=== PATIENT | male | born 1975 | race Caucasian/White ===

== ENCOUNTER 2025-02-14 18:00 | Emergency (ER) | payer SELFPAY ==
[2025-02-14] VITALS (25 sets, daily range): BP systolic 95–165; BP diastolic 25–115; PULSE 57–110; RESP 8–24; TEMP 36.3–36.4; O2SAT 88–97
--- NOTE | 2025-02-14 18:00 | DI.RAD_ITS ---
Exam(s) XR PORTABLE CHEST AP EXAM: XR PORTABLE CHEST AP CLINICAL HISTORY: Chest pain TECHNIQUE: 2D digital imaging was performed of the chest. One image was obtained. An AP view was obtained. COMPARISON: No exams were available for comparison FINDINGS: MEDIASTINUM: Normal. HEART: Normal. PULMONARY VASCULATURE: Normal. LUNGS: There is poor inspiration with crowding of the pulmonary vasculature. No focal consolidating infiltrates are present. PLEURAL SPACE: No pleural effusion or pneumothorax. BONE:Within normal limits for the patient's age. OTHER FINDINGS:Normal. IMPRESSION: 1. There is poor inspiration with crowding of the pulmonary vasculature. No focal consolidating infiltrates are present. 2. If there is continued clinical concern, a PA and lateral view of the chest in the department may be obtained for further characterization. DATA REPOSITORY: RADIATION DOSE DELIVERED:
--- NOTE | 2025-02-14 18:00 | RT.EKG_ITS ---
APPROVED REPORT Exam: Resting ECG Reason for Exam: Chest Pain Patient Location: E HR:112 bpm ECG Measurements Heart Rate 112 AXIS NJ 143 P 42 QRSd 87 QRS 9 QT 339 T 2 QTc 465 Conclusion Sinus tachycardia 112 normal axis TWI III, AVR no prior for comparison no stemi
[2025-02-14 18:22] LABS: Abs Immature Grans 0.03 10^3/uL (0.0-0.06); Absolute Basophil Count 0.02 10^3/uL (0.0-0.2); Absolute Eosinophil Count 0.12 10^3/uL (0.0-0.7); Absolute Lymphocyte Count 1.34 10^3/uL (1.2-3.4); Absolute Monocyte Count 0.75 10^3/uL (0.1-0.8); Absolute Neutrophil Count 5.93 10^3/uL (1.2-6.7); Basophils % 0.2 %; Eosinophils % 1.5 %; HCT 41.9 % (40.0-50.0); HGB 14.5 g/dL (13.5-17.5); Immature Grans % 0.4 %; Lymphocytes % 16.4 %; MCHC 34.6 % (32.0-36.0); MCV 90 fL (80-95); MPV 10.2 fL (8.0-11.0); Monocytes % 9.2 %; Neutrophils % 72.3 %; Platelet Count 229 10^3/uL (130-400); RBC 4.68 10^6/uL (4.36-5.78); RDW 13.3 % (11.8-14.1); RDW-SD 43.7 fL; WBC 8.19 10^3/uL (4.4-10.8)
--- NOTE | 2025-02-14 18:38 | ED.GENADUL_ITS ---
Discharge Plan Disposition Patient Disposition: [facility] Discharge Details Clinical Impression: Chest pain Primary Care Provider: None,None ED Provider: Coco Ordoñez Home Meds and New Rx's Prescriptions: No Action buprenorphine-naloxone [Suboxone] 8-2 mg film 2 film sublingual DAILY Rx Instructions: place 1 strip/tab under (each) side of tongue Discharge Instructions Instructions: Chest Pain (DC) Additional Instructions: * You were evaluated at the emergency department for chest pain. * Your blood work, EKG and chest x-ray do not demonstrate that your chest pain is caused by an acute myocardial infarction or other emergent condition * Please follow-up with your primary care provider / facility health care provid er as needed. HPI General Date/Time Provider Initiated Documentation: 02/14/25 18:05 . Limitations to Documentation: no limitations . Information obtained by: patient, police and EMS . HPI Narrative: 49-year-old gentleman presents via EMS in [facility] custody. Patient was being placed in [facility] after an arrest when he developed acute onset chest pain. The police lieutenant reports that the patient started complaining of severe chest pain was inconsolable and would not speak. EMS reports a nonacute EKG and that aspirin and nitroglycerin were given without any change in symptoms. Patient reports that he had been stacking wood earlier in the day and that maybe his chest was bothering him then he cannot say for sure. He denies any alcohol or drug use today. He does use buprenorphine and. He denies any history of cardiac issues. Denies any medication for high blood pressure. He does smoke. He describes the pain as severe, like something is sitting on him, worse when he moves or touches the area. Not associated with diaphoresis nausea or shortness of breath. Related Data Home Medications ?Medication ?Instructions ?Recorded ?Confirmed buprenorphine 8 mg-naloxone 2 mg 2 film sublingual LOLITA LY 02/14/25 02/14/25 sublingual film (Suboxone) Allergies Allergy/AdvReac Type Severity Reaction Status Date / Time Penicillins Allergy Mild Unknown Verified 02/14/25 18:07 General Stated Complaint: Chest Pain FATEMEH: 3 Exam Narrative Exam Narrative: Review of Systems: All systems reviewed & are unremarkable except as noted in H PI and below Well-developed, no acute distress NCAT RRR reproducible chest pain when I palpate Unlabored respiratory effort, clear bilaterally no hypoxia Nondistended abdomen soft nontender Extremities w/o edema Course Vital Signs Vital signs: Vital Signs Temperature 36.4 C L 02/14/25 18:01 Pulse 109 H 02/14/25 18:01 Respiratory Rate 21 02/14/25 18:01 Blood Pressure 137/115 H 02/14/25 18:01 Pulse Oximetry 97 02/14/25 18:01 Temperature 36.4 C L 02/14/25 18:01 Temperature Source Temporal Artery Scan 02/14/25 18:01 Pulse 109 H 02/14/25 18:01 Respiratory Rate 18 02/14/25 18:29 Respiratory Effort Normal, Non-Labored 02/14/25 18:29 Respiratory Depth Normal 02/14/25 18:29 Respiratory Pattern Normal 02/14/25 18:29 Blood Pressure 137/115 H 02/14/25 18:01 Blood Pressure Position Supine 02/14/25 18:01 Pulse Oximetry 97 02/14/25 18:01 Oxygen Delivery Method Room Air 02/14/25 18:01 Oxygen Flow Rate 0 02/14/25 18:01 Pain Level 6 02/14/25 18:01 Lab/Test Results Lab/Test Results: Laboratory Tests Range/Units 02/14/25 18:17 WBC (4.4-10.8) 10^3/uL 8.19 RBC (4.36-5.78) 10^6/uL 4.68 Hgb (13.5-17.5) g/dL 14.5 Hct (40.0-50.0) % 41.9 MCV (80-95) fL 90 MCH (27.0-33.0) pg 31.0 MCHC (32.0-36.0) % 34.6 RDW (11.8-14.1) % 13.3 Plt Count (130-400) 10^3/uL 229 MPV (8.0-11.0) fL 10.2 Immature Gran % % 0.4 Neutrophils % % 72.3 Lymphocytes % % 16.4 Monocytes % % 9.2 Eosinophils % % 1.5 Basophils % % 0.2 Nucleated RBC % (0.0-0.3) % 0.0 Absolute Neutrophils (1.2-6.7) 10^3/uL 5.93 Absolute Lymphocytes (1.2-3.4) 10^3/uL 1.34 Absolute Monocytes (0.1-0.8) 10^3/uL 0.75 Absolute Eosinophils (0.0-0.7) 10^3/uL 0.12 Absolute Basophils (0.0-0.2) 10^3/uL 0.02 Medical Decision Making Emergent evaluation of chest pain. Patient has cardiac risk factors including tobacco use. Hear score is 3. EKG does have some T wave inversions but there is no prior for comparison. Patient received aspirin and nitroglycerin by EMS. The nitroglycerin did not make a difference in his pain. And he seems to feel that the pain is worse with movement and touching the area. I have low suspicion for an acute coronary syndrome, this could be psychogenic pain, hypertensive emergency less likely and a acute aortic pathology also less likely. I do not suspect a pulmonary embolism. Will get blood work and chest xray to medically clear for incarceration. Lab work reviewed, no leukocytosis or anemia, no electrolyte derangement. Liver function testing within normal limits. His troponin was obtained and there is no significant global climate change analyst the delta values. The patient was noted to be comfortable in the emergency department until he was notified that he would be being discharged at which time he became fairly hostile, volatile, kicking the bed requiring intervention from his police lieutenant escort. He was advised that he continue routine care as needed and provided by in custody services for his primary care physician should he be released. PFSH All Active Problems (Updated 02/14/25 @ 19:33 by Coco Ordoñez MD) Chest pain (Acute) Social History Smoking/Tobacco Use Status: Current every day Tobacco Type: cigarettes Smoking risk assessment performed?: Yes Alcohol Intake: never Drug use: Occasionally Substance use type: crack/cocaine, heroin and IV drugs
[2025-02-14 18:40] LABS: ALT 17 U/L (16-63); AST 19 U/L (15-37); Albumin 3.1 g/dL (3.4-5.0); Alkaline Phosphatase 110 U/L (46-116); Anion Gap 9.8 mmol/L (3-11); BUN 8 mg/dL (7-18); Bilirubin, Total 0.8 mg/dL (0.2-1.0); CO2 26.2 mmol/L (21.0-32.0); CREATININE 0.7 mg/dL (0.70-1.30); Calcium 8.5 mg/dL (8.5-10.1); Chloride 105 mmol/L (98-107); Estimated GFR 113.66 (mL/min/1.73m2); Glucose 106 mg/dL (74-106); Lipase 20 U/L (<78); Potassium 3.7 mmol/L (3.5-5.1); Sodium 141 mmol/L (136-145); Total Protein 6.7 g/dL (6.4-8.2); Troponin I 5 ng/L (<or=76)
[2025-02-14 19:27] LABS: Troponin I 7 ng/L (<or=76)
== END 2025-02-14 19:44 ==
PROVIDERS: Emergency Provider Emergency Medicine
DX: R07.9 Chest pain, unspecified (principal); R00.0 Tachycardia, unspecified; F17.210 Nicotine dependence, cigarettes, uncomplicated
CPT/HCPCS: 36415; 80053; 83690; 93005; 99284; 71045; 84484; 85025; 93010

== ENCOUNTER 2025-02-22 22:37 | Emergency (ER) | payer OTHER, SELFPAY ==
[2025-02-22 22:46] VITALS: BP 116/81; PULSE 86; RESP 16; TEMP 36.7; O2SAT 96
--- NOTE | 2025-02-22 23:11 | ED.GENADUL_ITS ---
Discharge Plan Disposition Patient Disposition: [facility] Condition: Good Discharge Details Clinical Impression: Closed fracture of left distal radius Primary Care Provider: None,None ED Provider: Michael Ring Meds and New Rx's Prescriptions: Continued buprenorphine-naloxone [Suboxone] 8-2 mg film 2 film sublingual DAILY Rx Instructions: place 1 strip/tab under (each) side of tongue Discharge Instructions Instructions: Forearm and Wrist Fractures ED Additional Instructions: You will need to follow-up with orthopedics for definitive management. We did not repeat films here but have placed you in a thumb spica splint which you should leave on at all times. Follow-up with orthopedics within the next week. Return to ED for any numbness, weakness, severe worsening pain involving the left arm or hand. Referrals: [facility] [Provider Group] HPI General Date/Time Provider Initiated Documentation: 02/22/25 22:51 . Related Data Home Medications ?Medication ?Instructions ?Recorded ?Confirmed buprenorphine 8 mg-naloxone 2 mg 2 film sublingual LOLITA LY 02/14/25 02/14/25 sublingual film (Suboxone) Allergies Allergy/AdvReac Type Severity Reaction Status Date / Time Penicillins Allergy Mild Unknown Verified 02/14/25 18:07 General Stated Complaint: Orthopedic FATEMEH: 4 Course Vital Signs Vital signs: Vital Signs Temperature 98.1 F 02/22/25 22:46 Pulse 86 02/22/25 22:46 Respiratory Rate 16 02/22/25 22:46 Blood Pressure 116/81 02/22/25 22:46 Pulse Oximetry 96 02/22/25 22:46 Temperature 98.1 F 02/22/25 22:46 Temperature Source Oral 02/22/25 22:46 Pulse 86 02/22/25 22:46 Respiratory Rate 16 02/22/25 22:46 Blood Pressure 116/81 02/22/25 22:46 Blood Pressure Position Sitting 02/22/25 22:46 Pulse Oximetry 96 02/22/25 22:46 Oxygen Delivery Method Room Air 02/22/25 22:46 Oxygen Flow Rate 0 02/22/25 22:46 Pain Level 5 02/22/25 22:52 PFSH All Active Problems (Updated 02/22/25 @ 23:12 by Michael Ring MD) Closed fracture of left distal radius (Acute) Chest pain (Acute) Social History Smoking/Tobacco Use Status: Current every day Tobacco Type: cigarettes Smoking risk assessment performed?: Yes Alcohol Intake: never Drug use: Occasionally Substance use type: crack/cocaine, heroin and IV drugs Housing: other
[2025-02-22 23:25] VITALS: BP 116/81; PULSE 86; RESP 16; TEMP 36.7; O2SAT 96
--- NOTE | 2025-02-25 10:11 | NUR.NOTE ---
Access chart to get the discharge diagnosis for [facility] billing requisition and to print demographics for same reason. Nursing Note:
== END 2025-02-22 23:35 ==
PROVIDERS: Emergency Provider Emergency Medicine
DX: S52.502D Unspecified fracture of the lower end of left radius, subsequent encounter for closed fracture with routine healing (principal); R51.9 Headache, unspecified; F17.210 Nicotine dependence, cigarettes, uncomplicated; X58.XXXD Exposure to other specified factors, subsequent encounter
CPT/HCPCS: 99282